=== PATIENT | male | born 1960 | race Hispanic/Latino ===

== ENCOUNTER 2019-07-05 | Emergency (ER) | payer BC ==
[~2019-07-05] MED LIST: AUGMENTIN500TAB PO; BACTRIM DS1 TAB PO; DIABETA5 MG OR; FLEXERIL OR; KEFLEX500 MG PO; LISINOPRIL10 MG OR; LISINOPRIL10 MG PO; METFORMIN500 M1 PO; NAPROSYN500 MG PO; NO MEDS; PRAVACHOL10 MG OR; ULTRAM50 M1 PO; ULTRAM50 MG OR
[2019-07-05] MEDS ORDERED: LORTAB 1010 MG PO (06:18)
[2019-07-05] MEDS ORDERED: AMOX/K CLAV875 M1 PO (06:18)
== END 2019-07-05 06:40 | disposition home or self-care (01) | DRG 563 ==
PROC: 0HQFXZZ Repair Right Hand Skin, External Approach (ICD-10-PCS; principal; 2019-07-05)
DX: S62.632B Displaced fracture of distal phalanx of right middle finger, initial encounter for open fracture (principal); S60.470D Other superficial bite of right index finger, subsequent encounter; S60.47 Other superficial bite of fingers; E11.9 Type 2 diabetes mellitus without complications; W54.0XXD Bitten by dog, subsequent encounter

== ENCOUNTER 2019-07-06 | Emergency (ER) | payer BC ==
[~2019-07-06] MED LIST changes: +AMOX/K CLAV875 M1 PO; +LORTAB 1010 MG PO
[2019-07-06 09:46] LABS: HEMATOCRIT 43.4 % (39.0-50.0); IMMATURE GRANULOCYTES 0.3 % (0.0-5.0); MEAN CELL VOLUME 91.8 fL CALC (80.0-100.0); MEAN CORPUSCULAR HGB 31.7 pG CALC (26.0-32.0); MEAN CORPUSCULAR HGB CONC 34.6 g/L CALC (32.0-36.0); NEUT# 4.93 thou/uL (1.82-7.42); RED BLOOD COUNT 4.73 mill/uL (4.70-6.10); RED CELL DISTRI WIDTH 12.8 % (11.5-15.5)
[2019-07-06 09:59] LABS: ANION GAP 16 (6-22 (CALC)); BUN 8 mg/dL (9-20); BUN/CREATININE RATIO 14 (12-20 (CALC)); CARBON DIOXIDE 24 mmol/l (22-30); CHLORIDE 96 mmol/l (95-108); CREATININE 0.6 mg/dL (0.7-1.3); GFR > 60 ML/MIN (>=60 (CALC)); GFR FOR AFR.AMER. > 60 ML/MIN (>=60 (CALC)); POTASSIUM 4.6 mmol/l (3.5-5.1); SODIUM 132 mmol/l (137-146)
== END 2019-07-06 10:19 | DRG 563 ==
PROVIDERS: Family Medicine
DX: S62.632B Displaced fracture of distal phalanx of right middle finger, initial encounter for open fracture (principal); L03.113 Cellulitis of right upper limb; W54.0XXA Bitten by dog, initial encounter

== ENCOUNTER 2019-10-30 | Emergency (ER) | payer BC ==
[2019-10-30] MEDS ORDERED: VOLTAREN - GENE75 MG PO (04:46)
[2019-10-30] MEDS ORDERED: AMOX/K CLAV875 M1 PO (04:46)
== END 2019-10-30 05:30 | disposition home or self-care (01) | DRG 159 ==
DX: K04.7 Periapical abscess without sinus (principal); K02.9 Dental caries, unspecified; E11.9 Type 2 diabetes mellitus without complications

== ENCOUNTER 2019-11-04 16:33 | Emergency (ER) | payer BC ==
[~2019-11-04 16:33] MED LIST changes: +VOLTAREN - GENE75 MG PO
[2019-11-04] MEDS ORDERED: CLEOCIN300 MG PO (17:24)
[2019-11-04] MEDS ORDERED: HYDROCO/APAP1 TA9 PO (17:24)
[2019-11-04 17:34] VITALS: BP 124/77
== END 2019-11-04 17:40 | disposition home or self-care (01) | DRG 159 ==
LOC: ED 16:33
DX: K04.7 Periapical abscess without sinus (principal); K02.9 Dental caries, unspecified; E11.9 Type 2 diabetes mellitus without complications; Z79.84 Long term (current) use of oral hypoglycemic drugs; Z86.19 Personal history of other infectious and parasitic diseases

== ENCOUNTER 2020-11-06 12:47 | Emergency (ER) | payer MEDICAID ==
[~2020-11-06] VITALS: Ht 154.9 cm; Wt 78.0 kg
[~2020-11-06 12:47] MED LIST changes: +CLEOCIN300 MG PO; +HYDROCO/APAP1 TA9 PO
[2020-11-06 16:15] VITALS: BP 140/88
== END 2020-11-06 16:21 | DRG 566 ==
LOC: ED 12:47
DX: S66.125A Laceration of flexor muscle, fascia and tendon of left ring finger at wrist and hand level, initial encounter (principal); S61.213A Laceration without foreign body of left middle finger without damage to nail, initial encounter; S61.215A Laceration without foreign body of left ring finger without damage to nail, initial encounter; E11.9 Type 2 diabetes mellitus without complications; W29.3XXA Contact with powered garden and outdoor hand tools and machinery, initial encounter; Y93.89 Activity, other specified; Y92.009 Unspecified place in unspecified non-institutional (private) residence as the place of occurrence of the external cause; Z79.84 Long term (current) use of oral hypoglycemic drugs; Z20.822 Contact with and (suspected) exposure to COVID-19

== ENCOUNTER 2022-11-19 09:35 | Emergency (ER) | payer SELFPAY ==
[~2022-11-19] VITALS: Ht 154.9 cm; Wt 71.4 kg
[2022-11-19 09:45] VITALS: BP 120/93
[2022-11-19 10:00] VITALS: BP 106/69
[2022-11-19 10:30] VITALS: BP 107/63
[2022-11-19 10:34] LABS: BASO% 0.1 % (0-3); EOS% 0.1 % (0-8); HEMATOCRIT 42.8 % (39.0-50.0); HEMOGLOBIN 14.7 g/dl (14.0-18.0); IMMATURE GRANULOCYTES 0.2 % (0.0-5.0); LYMPH% 7.7 % (15-41); MEAN CORPUSCULAR HGB 30.6 pG CALC (26.0-32.0); MEAN CORPUSCULAR HGB CONC 34.3 g/dL CAL (32.0-36.0); MONO% 3.3 % (2-13); NEUT# 8.33 thou/uL (1.82-7.42); NEUT% 88.6 % (42-76); RED BLOOD COUNT 4.81 mill/uL (4.70-6.10)
[2022-11-19 10:45] LABS: ALBUMIN 4.3 g/dL (3.2-5.0); ALKALINE PHOSPHATASE 124 u/l (38-126); ANION GAP 17 (6-22 (CALC)); BUN 9 mg/dL (8-23); BUN/CREATININE RATIO 11 (12-20 (CALC)); CARBON DIOXIDE 20 mmol/l (22-30); CHLORIDE 103 mmol/l (95-108); CREATININE 0.8 mg/dL (0.7-1.3); GFR FOR AFR.AMER. > 60 ML/MIN (>=60 (CALC)); GFR OTHER RACES > 60 ML/MIN (>=60 (CALC)); POTASSIUM 4.1 mmol/l (3.5-5.1); SGOT/AST 42 u/l (19-48); SODIUM 136 mmol/l (137-146); TOTAL PROTEIN 7.8 g/dL (6.3-8.2)
[2022-11-19 10:49] LABS: BILIRUBIN, TOTAL 0.7 mg/dL (0.2-1.3)
[2022-11-19] MEDS ORDERED: ZPAK PO (10:59)
[2022-11-19 11:00] VITALS: BP 100/69
[2022-11-19 11:15] VITALS: BP 100/69
== END 2022-11-19 11:30 | disposition home or self-care (01) | DRG 204 ==
LOC: ED 09:35
PROVIDERS: Family Medicine
DX: R05.9 Cough, unspecified (principal); J02.9 Acute pharyngitis, unspecified; E11.9 Type 2 diabetes mellitus without complications; Z79.84 Long term (current) use of oral hypoglycemic drugs; Z20.822 Contact with and (suspected) exposure to COVID-19

== ENCOUNTER 2023-03-03 09:40 | Emergency (ER) | payer SELFPAY ==
[~2023-03-03] VITALS: Ht 154.9 cm; Wt 70.0 kg
[~2023-03-03 09:40] MED LIST changes: +ZPAK PO
[2023-03-03] MEDS ORDERED: GLIMEPIRIDE4 MG PO (09:58)
[2023-03-03 10:02] VITALS: BP 132/84
[2023-03-03 10:30] VITALS: BP 131/74
[2023-03-03 10:52] VITALS: BP 123/85
[2023-03-03 11:01] VITALS: BP 120/65
[2023-03-03 11:30] VITALS: BP 128/80
[2023-03-03 11:41] VITALS: BP 128/80
== END 2023-03-03 11:50 | disposition home or self-care (01) | DRG 153 ==
LOC: ED 09:40
DX: J06.9 Acute upper respiratory infection, unspecified (principal); E11.9 Type 2 diabetes mellitus without complications; Z79.84 Long term (current) use of oral hypoglycemic drugs; Z20.822 Contact with and (suspected) exposure to COVID-19

== ENCOUNTER 2023-03-27 22:32 | Emergency (ER) | payer SELFPAY ==
[~2023-03-27] VITALS: Ht 154.9 cm; Wt 71.0 kg
[~2023-03-27 22:32] MED LIST changes: +GLIMEPIRIDE4 MG PO
[2023-03-27 23:16] VITALS: BP 118/72
[2023-03-27 23:30] VITALS: BP 125/83
[2023-03-27 23:45] VITALS: BP 132/81
[2023-03-28 00:26] LABS: ALBUMIN 3.5 g/dL (3.2-5.0); ANION GAP 11 (6-22 (CALC)); BILIRUBIN, TOTAL 0.5 mg/dL (0.2-1.3); BUN 9 mg/dL (8-23); BUN/CREATININE RATIO 14 (12-20 (CALC)); CARBON DIOXIDE 23 mmol/l (22-30); CHLORIDE 102 mmol/l (95-108); CREATININE 0.6 mg/dL (0.7-1.3); GFR FOR AFR.AMER. > 60 ML/MIN (>=60 (CALC)); GFR OTHER RACES > 60 ML/MIN (>=60 (CALC)); POTASSIUM 3.8 mmol/l (3.5-5.1); SGOT/AST 36 u/l (19-48); SODIUM 132 mmol/l (137-146); TOTAL PROTEIN 8.5 g/dL (6.3-8.2)
[2023-03-28 00:28] LABS: ALKALINE PHOSPHATASE 195 u/l (38-126)
[2023-03-28 01:02] LABS: BASO% 0.6 % (0-3); EOS% 6.3 % (0-8); HEMATOCRIT 39.7 % (39.0-50.0); HEMOGLOBIN 13.7 g/dl (14.0-18.0); IMMATURE GRANULOCYTES 0.2 % (0.0-5.0); LYMPH% 24.1 % (15-41); MEAN CELL VOLUME 86.5 fL CALC (80.0-100.0); MEAN CORPUSCULAR HGB 29.8 pG CALC (26.0-32.0); MEAN CORPUSCULAR HGB CONC 34.5 g/dL CAL (32.0-36.0); MONO% 7.4 % (2-13); NEUT# 5.31 thou/uL (1.82-7.42); NEUT% 61.4 % (42-76); RED BLOOD COUNT 4.59 mill/uL (4.70-6.10); RED CELL DISTRI WIDTH 12.4 % (11.5-15.5)
[2023-03-28] MEDS ORDERED: INH300 MG PO (02:12)
[2023-03-28 04:28] VITALS: BP 121/75
[2023-03-28] MEDS ORDERED: BENZONATATE200 MG PO (04:32)
== END 2023-03-28 04:35 | disposition home or self-care (01) | DRG 204 ==
LOC: ED 22:32
PROVIDERS: Family Medicine
DX: R05.9 Cough, unspecified (principal); R63.4 Abnormal weight loss; R61 Generalized hyperhidrosis; E11.9 Type 2 diabetes mellitus without complications; Z79.84 Long term (current) use of oral hypoglycemic drugs

== ENCOUNTER 2023-07-03 17:35 | Emergency (ER) | payer SELFPAY ==
[~2023-07-03] VITALS: Ht 154.9 cm; Wt 63.5 kg
[2023-07-03] VITALS (12 sets, daily range): BP systolic 105–127; BP diastolic 65–94
[~2023-07-03 17:35] MED LIST changes: +BENZONATATE200 MG PO; +INH300 MG PO; +LEVOFLOXACIN500MG PO; +VIBRAMYCIN100 M2 PO; +ZITHROMAX250 MG PO
[2023-07-03] MEDS ORDERED: GLIMEPIRIDE2 MG PO (20:03)
[2023-07-03] MEDS ORDERED: PREDNISONE10 MG PO (20:04)
[2023-07-03] MEDS ORDERED: ATORVASTATIN CA10 MG PO (20:05)
[2023-07-03 21:01] LABS: URINE BILIRUBIN - DIPSTICK Negative (NEGATIVE); URINE BLOOD DIPSTICK Negative (NEGATIVE); URINE GLUCOSE - DIPSTICK >=1000 mg/dL (NEGATIVE); URINE KETONE Trace mg/dL (NEGATIVE); URINE LEUK ESTERASE Negative (NEGATIVE); URINE NITRITE - DIPSTICK Negative (Negative); URINE PROTEIN - DIPSTICK 30 mg/dL (NEG-TRACE); URINE UROBILINOGEN - DIPSTICK 0.2 E.U./dL (0.2)
[2023-07-03 21:02] LABS: URINE COLOR Yellow
[2023-07-03 21:03] LABS: URINE RBC 0-2 RBC/hpf (0-5); URINE WBC 0-2 WBC/hpf (0-5)
[2023-07-03] MEDS ORDERED: IPRATROPIU0.5 MG/3 M IN (23:08)
[2023-07-03] MEDS ORDERED: PREDNISONE20 MG PO (23:08)
[2023-07-03] MEDS ORDERED: BENZONATATE200 MG PO (23:08)
[2023-07-03] MEDS ORDERED: ZITHROMAX500 MG PO (23:08)
== END 2023-07-03 23:33 | disposition home or self-care (01) | DRG 195 ==
LOC: ED 17:35
PROVIDERS: Family Medicine
DX: J10.1 Influenza due to other identified influenza virus with other respiratory manifestations (principal); E11.9 Type 2 diabetes mellitus without complications; Z79.84 Long term (current) use of oral hypoglycemic drugs; Z20.822 Contact with and (suspected) exposure to COVID-19

== ENCOUNTER 2023-07-06 14:04 | Observation (INO) | payer SELFPAY ==
[2023-07-06] VITALS (26 sets, daily range): BP systolic 91–151; BP diastolic 54–85
[~2023-07-06] VITALS: Ht 154.9 cm; Wt 55.7 kg
[~2023-07-06 14:04] MED LIST changes: +ATORVASTATIN CA10 MG PO; +GLIMEPIRIDE2 MG PO; +IPRATROPIU0.5 MG/3 M IN; +PREDNISONE10 MG PO; +PREDNISONE20 MG PO; +ZITHROMAX500 MG PO
[2023-07-06 15:03] LABS: BASO% 0.1 % (0-3); EOS% 0.1 % (0-8); HEMATOCRIT 40.2 % (39.0-50.0); HEMOGLOBIN 13.6 g/dl (14.0-18.0); IMMATURE GRANULOCYTES 0.4 % (0.0-5.0); LYMPH% 15.4 % (15-41); MEAN CELL VOLUME 81.4 fL CALC (80.0-100.0); MEAN CORPUSCULAR HGB 27.5 pG CALC (26.0-32.0); MEAN CORPUSCULAR HGB CONC 33.8 g/dL CAL (32.0-36.0); MONO% 3.5 % (2-13); NEUT# 9.79 thou/uL (1.82-7.42); NEUT% 80.5 % (42-76); RED BLOOD COUNT 4.94 mill/uL (4.70-6.10); RED CELL DISTRI WIDTH 16.4 % (11.5-15.5)
[2023-07-06 15:18] LABS: ALBUMIN 3.6 g/dL (3.2-5.0); ALKALINE PHOSPHATASE 139 u/l (38-126); ANION GAP 10 (6-22 (CALC)); BILIRUBIN, TOTAL 0.6 mg/dL (0.2-1.3); BUN 9 mg/dL (8-23); BUN/CREATININE RATIO 18 (12-20 (CALC)); CARBON DIOXIDE 26 mmol/l (22-30); CHLORIDE 95 mmol/l (95-108); CREATININE 0.5 mg/dL (0.7-1.3); GFR FOR AFR.AMER. > 60 ML/MIN (>=60 (CALC)); GFR OTHER RACES > 60 ML/MIN (>=60 (CALC)); POTASSIUM 3.6 mmol/l (3.5-5.1); SGOT/AST 46 u/l (19-48); SODIUM 129 mmol/l (137-146); TOTAL PROTEIN 8.1 g/dL (6.3-8.2)
[2023-07-06 15:40] LABS: URINE BILIRUBIN - DIPSTICK Negative (NEGATIVE); URINE BLOOD DIPSTICK Negative (NEGATIVE); URINE GLUCOSE - DIPSTICK >=1000 mg/dL (NEGATIVE); URINE KETONE 15 mg/dL (NEGATIVE); URINE LEUK ESTERASE Negative (NEGATIVE); URINE NITRITE - DIPSTICK Negative (Negative); URINE PROTEIN - DIPSTICK 100 mg/dL (NEG-TRACE); URINE UROBILINOGEN - DIPSTICK 0.2 E.U./dL (0.2)
[2023-07-06 15:47] LABS: URINE COLOR Yellow
[2023-07-06 15:48] LABS: URINE EPITHELIAL CELLS FEW EPI/hpf (0-FEW); URINE MUCUS MODERATE hpf (NONE-FEW)
[2023-07-07] VITALS (43 sets, daily range): BP systolic 92–134; BP diastolic 49–80
[2023-07-07 04:59] LABS: HEMATOCRIT 37.1 % (39.0-50.0); HEMOGLOBIN 12.1 g/dl (14.0-18.0); MEAN CELL VOLUME 82.8 fL CALC (80.0-100.0); MEAN CORPUSCULAR HGB CONC 32.6 g/dL CAL (32.0-36.0); RED BLOOD COUNT 4.48 mill/uL (4.70-6.10); RED CELL DISTRI WIDTH 16.8 % (11.5-15.5)
[2023-07-07 05:19] LABS: ALKALINE PHOSPHATASE 106 u/l (38-126); ANION GAP 5 (6-22 (CALC)); BUN 4 mg/dL (8-23); BUN/CREATININE RATIO 11 (12-20 (CALC)); CARBON DIOXIDE 26 mmol/l (22-30); CHLORIDE 105 mmol/l (95-108); CREATININE 0.4 mg/dL (0.7-1.3); GFR FOR AFR.AMER. > 60 ML/MIN (>=60 (CALC)); GFR OTHER RACES > 60 ML/MIN (>=60 (CALC)); MAGNESIUM 1.7 mg/dL (1.6-2.3); POTASSIUM 3.3 mmol/l (3.5-5.1); SGOT/AST 27 u/l (19-48); SODIUM 134 mmol/l (137-146)
[2023-07-07 05:23] LABS: ALBUMIN 2.6 g/dL (3.2-5.0); BILIRUBIN, TOTAL 0.3 mg/dL (0.2-1.3); TOTAL PROTEIN 6.2 g/dL (6.3-8.2)
[2023-07-08 00:47] VITALS: BP 116/69
[2023-07-08 06:22] LABS: BASO% 0.4 % (0-3); EOS% 3.6 % (0-8); HEMATOCRIT 38.7 % (39.0-50.0); HEMOGLOBIN 12.8 g/dl (14.0-18.0); IMMATURE GRANULOCYTES 0.8 % (0.0-5.0); LYMPH% 47.1 % (15-41); MEAN CELL VOLUME 83.9 fL CALC (80.0-100.0); MEAN CORPUSCULAR HGB 27.8 pG CALC (26.0-32.0); MEAN CORPUSCULAR HGB CONC 33.1 g/dL CAL (32.0-36.0); MONO% 3.2 % (2-13); NEUT# 2.35 thou/uL (1.82-7.42); NEUT% 44.9 % (42-76); RED BLOOD COUNT 4.61 mill/uL (4.70-6.10); RED CELL DISTRI WIDTH 16.8 % (11.5-15.5)
[2023-07-08 06:30] VITALS: BP 98/57
[2023-07-08 06:53] LABS: ALBUMIN 2.7 g/dL (3.2-5.0); ALKALINE PHOSPHATASE 111 u/l (38-126); ANION GAP 8 (6-22 (CALC)); BILIRUBIN, TOTAL 0.3 mg/dL (0.2-1.3); BUN 6 mg/dL (8-23); BUN/CREATININE RATIO 12 (12-20 (CALC)); CARBON DIOXIDE 22 mmol/l (22-30); CHLORIDE 111 mmol/l (95-108); CREATININE 0.5 mg/dL (0.7-1.3); GFR FOR AFR.AMER. > 60 ML/MIN (>=60 (CALC)); GFR OTHER RACES > 60 ML/MIN (>=60 (CALC)); SGOT/AST 24 u/l (19-48); SODIUM 137 mmol/l (137-146); TOTAL PROTEIN 6.6 g/dL (6.3-8.2)
[2023-07-08 11:15] VITALS: BP 122/71
[2023-07-08] MEDS ORDERED: DOXYCYCLINE100 MG PO (11:54)
[2023-07-08] MEDS ORDERED: AMOX/K CLAV875 M1 PO (11:54)
== END 2023-07-08 15:28 | disposition home or self-care (01) | DRG 193 ==
LOC: ED 14:04 → ICU 18:04 → MS2 07-07 20:30
PROVIDERS: Nurse Practitioner; Nurse Practitioner Family; ADMIT Student in an Organized Health Care Education/Training Program; ATTEND Student in an Organized Health Care Education/Training Program
DX: J10.00 Influenza due to other identified influenza virus with unspecified type of pneumonia (principal); J96.01 Acute respiratory failure with hypoxia; E11.65 Type 2 diabetes mellitus with hyperglycemia; E78.5 Hyperlipidemia, unspecified; Z79.84 Long term (current) use of oral hypoglycemic drugs; T48.996A Underdosing of other agents primarily acting on the respiratory system, initial encounter; Z91.128 Patient's intentional underdosing of medication regimen for other reason; Z20.822 Contact with and (suspected) exposure to COVID-19
CPT/HCPCS: G0378; J1650

== ENCOUNTER 2024-03-22 10:40 | Emergency (ER) | payer SELFPAY ==
[2024-03-22] VITALS (12 sets, daily range): BP systolic 122–139; BP diastolic 73–90
[~2024-03-22] VITALS: Ht 152.4 cm; Wt 68.0 kg
[~2024-03-22 10:40] MED LIST changes: +DOXYCYCLINE100 MG PO; +IMODIUM2 MG PO; +LANTUS SOL100 UNIT/M SC; +LEVOFLOXACIN750 MG PO; +ROBITUSSIN AC10 ML PO; +TAM75CAP PO; +TOPROL XL25 M1 PO; +ZOFRAN4 MG/TAB PO
[2024-03-22 11:33] LABS: BASO% 0.5 % (0-3); EOS% 7.8 % (0-8); HEMATOCRIT 42.9 % (39.0-50.0); HEMOGLOBIN 14.6 g/dl (14.0-18.0); IMMATURE GRANULOCYTES 0.3 % (0.0-5.0); LYMPH% 30.6 % (15-41); MEAN CELL VOLUME 85.3 fL CALC (80.0-100.0); MONO% 5.6 % (2-13); NEUT# 5.1 thou/uL (1.82-7.42); NEUT% 55.2 % (42-76); RED BLOOD COUNT 5.03 mill/uL (4.70-6.10); RED CELL DISTRI WIDTH 13.2 % (11.5-15.5)
[2024-03-22 11:54] LABS: ALBUMIN 4.1 g/dL (3.2-5.0); ALKALINE PHOSPHATASE 105 u/l (38-126); ANION GAP 8 (6-22 (CALC)); BILIRUBIN, TOTAL 0.5 mg/dL (0.2-1.3); BUN 9 mg/dL (8-23); BUN/CREATININE RATIO 15 (12-20 (CALC)); CARBON DIOXIDE 25 mmol/l (22-30); CHLORIDE 108 mmol/l (95-108); CREATININE 0.6 mg/dL (0.7-1.3); ESTIMATED GFR 107 ML/MIN (>=90 (CALC)); SGOT/AST 38 u/l (19-48); SODIUM 136 mmol/l (137-146); TOTAL PROTEIN 9.4 g/dL (6.3-8.2)
[2024-03-22] MEDS ORDERED: AMOX/K CLAV875 M1 PO (13:01)
== END 2024-03-22 13:35 | disposition home or self-care (01) | DRG 195 ==
LOC: ED 10:40
PROVIDERS: Family Medicine
DX: J18.9 Pneumonia, unspecified organism (principal); J84.10 Pulmonary fibrosis, unspecified; I10 Essential (primary) hypertension; E11.9 Type 2 diabetes mellitus without complications; I25.10 Atherosclerotic heart disease of native coronary artery without angina pectoris; F10.10 Alcohol abuse, uncomplicated; Z87.891 Personal history of nicotine dependence; Z79.4 Long term (current) use of insulin; Z20.822 Contact with and (suspected) exposure to COVID-19

== ENCOUNTER 2024-05-16 16:45 | Emergency (ER) | payer MEDICARE, MEDICAID ==
[~2024-05-16] VITALS: Ht 152.4 cm; Wt 68.0 kg
[2024-05-16] VITALS (10 sets, daily range): BP systolic 110–209; BP diastolic 67–108
[~2024-05-16 16:45] MED LIST changes: +ALL DAY ALLG10 MG PO; +DIOVAN80 MG PO; +PREDNISONE50 MG PO
[2024-05-16] MEDS ORDERED: SODIUM CHLORIDE 0.9% 1,000 ML BAG IV ONE (17:20)
[2024-05-16 18:05] LABS: BASO% 1.1 % (0-3); EOS% 5.2 % (0-8); HEMATOCRIT 41.1 % (39.0-50.0); HEMOGLOBIN 13.8 g/dl (14.0-18.0); IMMATURE GRANULOCYTES 0.5 % (0.0-5.0); LYMPH% 28.7 % (15-41); MEAN CELL VOLUME 86.2 fL CALC (80.0-100.0); MEAN CORPUSCULAR HGB 28.9 pG CALC (26.0-32.0); MEAN CORPUSCULAR HGB CONC 33.6 g/dL CAL (32.0-36.0); MONO% 7.7 % (2-13); NEUT# 3.7 thou/uL (1.82-7.42); NEUT% 56.8 % (42-76); RED BLOOD COUNT 4.77 mill/uL (4.70-6.10); RED CELL DISTRI WIDTH 13.1 % (11.5-15.5)
[2024-05-16 18:17] LABS: ANION GAP 13 (6-22 (CALC)); BILIRUBIN, TOTAL 0.3 mg/dL (0.2-1.3); BUN 8 mg/dL (8-23); BUN/CREATININE RATIO 9 (12-20 (CALC)); CARBON DIOXIDE 26 mmol/l (22-30); CHLORIDE 98 mmol/l (95-108); CREATININE 0.8 mg/dL (0.7-1.3); ESTIMATED GFR 98 ML/MIN (>=90 (CALC)); SGOT/AST 33 u/l (19-48); SODIUM 133 mmol/l (137-146); TOTAL PROTEIN 8.2 g/dL (6.3-8.2)
[2024-05-16 18:18] LABS: ALKALINE PHOSPHATASE 159 u/l (38-126)
[2024-05-16] MEDS ORDERED: SODIUM CHLORIDE 0.9% 1,000 ML IV ONE (18:30)
[2024-05-16] MEDS ORDERED: cloNIDine HCL 0.1 MG/TAB PO ONE (18:40)
[2024-05-16] MEDS ORDERED: ZPAK PO (18:49)
[2024-05-16] MEDS ORDERED: BENZONATATE200 MG PO (18:49)
[2024-05-16 18:56] LABS: URINE BILIRUBIN - DIPSTICK Negative (NEGATIVE); URINE BLOOD DIPSTICK Trace-intact (NEGATIVE); URINE CLARITY Clear; URINE GLUCOSE - DIPSTICK >=1000 mg/dL (NEGATIVE); URINE KETONE Negative (NEGATIVE); URINE LEUK ESTERASE Negative (Negative); URINE NITRITE - DIPSTICK Negative (Negative); URINE PROTEIN - DIPSTICK Negative (NEG-TRACE); URINE UROBILINOGEN - DIPSTICK 0.2 E.U./dL (0.2)
[2024-05-16 18:57] LABS: URINE COLOR Yellow
== END 2024-05-16 19:15 | disposition home or self-care (01) ==
LOC: ED 16:45
PROVIDERS: Family Medicine
DX: J40 Bronchitis, not specified as acute or chronic (principal); I10 Essential (primary) hypertension; E11.9 Type 2 diabetes mellitus without complications; I25.10 Atherosclerotic heart disease of native coronary artery without angina pectoris; Z87.891 Personal history of nicotine dependence; Z79.4 Long term (current) use of insulin; Z20.822 Contact with and (suspected) exposure to COVID-19

== ENCOUNTER 2024-05-18 21:58 | Emergency (ER) | payer MEDICARE, MEDICAID ==
[~2024-05-18] VITALS: Ht 152.4 cm; Wt 68.0 kg
[2024-05-18] MEDS ORDERED: ALBUTEROL SULFATE 2.5 MG VIAL NEB ONE (23:25)
[2024-05-18] MEDS ORDERED: DEXAMETHASONE SOD. PHOSPHATE 10 MG/ML VIAL IV ONE (23:30)
[2024-05-19 00:32] LABS: BASO% 0.5 % (0-3); EOS% 3.1 % (0-8); HEMATOCRIT 44.6 % (39.0-50.0); HEMOGLOBIN 14.5 g/dl (14.0-18.0); IMMATURE GRANULOCYTES 0.4 % (0.0-5.0); LYMPH% 31.4 % (15-41); MEAN CORPUSCULAR HGB 28.9 pG CALC (26.0-32.0); MEAN CORPUSCULAR HGB CONC 32.5 g/dL CAL (32.0-36.0); MONO% 5.2 % (2-13); NEUT# 4.82 thou/uL (1.82-7.42); NEUT% 59.4 % (42-76); RED BLOOD COUNT 5.01 mill/uL (4.70-6.10); RED CELL DISTRI WIDTH 13.6 % (11.5-15.5)
[2024-05-19 00:42] LABS: ALBUMIN 4.1 g/dL (3.2-5.0); BILIRUBIN, TOTAL 0.4 mg/dL (0.2-1.3); POTASSIUM 3.8 mmol/l (3.5-5.1); TOTAL PROTEIN 8.7 g/dL (6.3-8.2)
[2024-05-19 00:46] LABS: CREATININE 0.7 mg/dL (0.7-1.3)
[2024-05-19] MEDS ORDERED: DECADRON4 MG PO ×2 (02:14→15:44)
[2024-05-19] MEDS ORDERED: DOXYCYCL HYC100 M4 PO ×2 (02:14→15:44)
[2024-05-19] MEDS ORDERED: DOXYCYCLINE HYCLATE 100 MG/CAP PO ONE (02:15)
[2024-05-19] MEDS ORDERED: VENTOLIN HFA108 MCG PO ×2 (02:17→15:44)
[2024-05-19] MEDS ORDERED: LIDOcaine HCl 1% (Local Anesth.) 20 ML VIAL IM STA (02:23)
[2024-05-19] MEDS ORDERED: cefTRIAXone SODIUM 1 GM/VIAL SDV IM ONE (02:25)
[2024-05-19 03:17] VITALS: BP 157/89
== END 2024-05-19 03:17 | disposition home or self-care (01) ==
LOC: ED 21:58
PROVIDERS: Emergency Medicine
DX: J18.9 Pneumonia, unspecified organism (principal); I10 Essential (primary) hypertension; E11.9 Type 2 diabetes mellitus without complications; I25.10 Atherosclerotic heart disease of native coronary artery without angina pectoris; F10.10 Alcohol abuse, uncomplicated; Z87.891 Personal history of nicotine dependence; Z79.4 Long term (current) use of insulin; R06.02 Shortness of breath